=== PATIENT | female | born 1940 | race Caucasian/White ===

== ENCOUNTER → 2017-08-26 | Outpatient (CLI) | payer MEDICARE, OTHER ==
[~2017-08-26] MED LIST: ATOR10 PO; Bactrim Ds Tab1 EACH PO; CALC1.25T; CALCAVITDA PO; ENOX30I SC; ESOM20 PO; GINKGO BILOBA30 MG; GLUCOSAMINE-CH900 MG PO; HYDACE5 PO; LISI20 PO; MELO7.5 PO; Mobic15 MG PO; OSTEO BI-FLEX1 EAC2 PO; OSTEO-PORETICA1 EACH PO; SULTRIDS PO; VICODIN HP 10-1 EACH PO
== END | disposition home or self-care (01) ==
LOC: LAB EV 12:33 → LAB SHORT 12:33
DX: N39.0 Urinary tract infection, site not specified (principal)
CPT/HCPCS: 87077; 87086; 87186

== ENCOUNTER → 2017-09-14 | Outpatient (CLI) | payer MEDICARE, OTHER | END | disposition home or self-care (01) | LOC: LAB EV 15:14 → LAB SHORT 15:14 | DX: R35.0 Frequency of micturition (principal) | CPT/HCPCS: 87077; 87086; 87186 ==

== ENCOUNTER → 2017-12-09 | Outpatient (CLI) | payer MEDICARE, OTHER | LOC: LAB 16:20 → LAB SHORT 16:20 | DX: N39.0 Urinary tract infection, site not specified (principal) | CPT/HCPCS: 87086 ==

== ENCOUNTER 2018-07-05 13:45 | Inpatient (IN) | payer MEDICARE, OTHER ==
[~2018-07-05] VITALS: Ht 167.6 cm; Wt 77.6 kg
[~2018-07-05 13:45] MED LIST changes: +ASPI81CH PO; -CALC1.25T; +CHOL10002 PO; +CYCL10 PO; +GABA100 PO; +Oyster Shell Calcium PO
[2018-07-06] MEDS ORDERED: Norco 7.5-3251 EACH PO (06:42)
--- NOTE | 2018-07-06 06:46 | NUR ---
PTADMITTED TO [facility]. AGREES WITH PLANNED SURGERY. LUNG SOUNDS CLEAR.
--- NOTE | 2018-07-06 06:55 | NUR ---
SHAILAN SWAB TO BILATERAL NARES
--- NOTE | 2018-07-06 07:17 | NUR ---
UP TO BATHROOM, VOIDED.
--- NOTE | 2018-07-06 07:18 | NUR ---
DR. LOO INFORMED THAT WE NEED A RECTAL SWAB TO CLEAR PT HX OF ESBL. ORDER GIVEN TO OBTAIN RECTAL SWAB.
--- NOTE | 2018-07-06 16:29 | NUR ---
DISCUSSED WITH ORTHO COORDINATOR, SPECIMEN COLLECTED EARLIER IN DAYSURGERY BY Luana BOND.
--- NOTE | 2018-07-06 17:47 | NUR ---
SHIFT SUMMARY PT EATING AND DRINKING WELL. PT VOIDING. PASSING GAS. WALKING WITH ASSIST IN HALLWAY. REPORTS PAIN MUCH BETTER, DENIES AT THIS TIME. HEMOVAC IN PLACE. PT USING CALL LIGHT APPR. PT BEEN UP IN CHAIR FOR SOME TIME.
[2018-07-07 04:36] LABS: BASOPHILS ABSOLUTE AUTO 0.01 K/mm3 (0.00-0.23); BASOPHILS PERCENT AUTO 0 % (0-2); EOSINOPHILS PERCENT AUTO 0 % (0-6); Hemoglobin 9.3 g/dL (11.5-16.0); IMMATURE GRAN ABSOLUTE AUTO 0.04 K/mm3 (0.00-0.10); IMMATURE GRAN PERCENT AUTO 0 % (0-1); LYMPHOCYTES PERCENT AUTO 10 % (21-46); MONOCYTES ABSOLUTE AUTO 0.82 K/mm3 (0.16-1.47); MONOCYTES PERCENT AUTO 9 % (4-13); Mean Corpuscular HGB 31.7 pg (26.0-34.0); Mean Corpuscular HGB Conc 33.2 g/dL (31.5-36.5); Mean Corpuscular Volume 96 fL (80-100); Mean Platelet Volume 9.4 fL (9.1-12.4); NEUTROPHILS ABSOLUTE AUTO 7.64 K/mm3 (1.96-9.15); NEUTROPHILS PERCENT AUTO 81 % (41-73); Platelet Count 231 K/mm3 (150-400); RDW Coefficient Variation 13.3 % (11.7-14.2); RDW Standard Deviation 46.8 fL (35.1-46.3); Red Blood Cell Count 2.93 M/mm3 (3.80-5.20); White Blood Cell Count 9.41 K/mm3 (4.00-11.30)
[2018-07-07 05:01] LABS: Calcium, Blood 8.3 mg/dL (8.5-10.1); Potassium, Blood 4.4 mmol/L (3.5-5.5)
--- NOTE | 2018-07-07 06:19 | NUR ---
SHIFT SUMMARY PT A&O X4 T/O SHIFT. POD#1 L KESHA; DRESSING CDI T/O SHIFT. HEMOVAC COMPRESSED; 75 ML DARK SS DRAINAGE OVER SHIFT. PAIN MANGED PER EMAR. CRYOTHERAPY TO L HIP T/O SHIFT. PPPX4. PT STS N/T AT BASELINE. PT UP TO TOILET AND AMBULATED IN [place] WITH FWW, GP AND SBA; TOLERATED WELL. DAVID'S AND SCD'S TO BLE'S. PT DENIES SOB, DIZZINESS, CP AND NAUSEA T/O SHIFT. SIDE RAILS X3 FOR SAFETY. PT DEMONSTRATES I/S USE WHILE AWAKE. CALL LIGHT IN REACH; PT DEMONSTRATES USE. WCTM UNTIL REPORT TO DAY SHIFT RN.
[2018-07-07] MEDS ORDERED: LO-DOSE ASPIRIN81 MG PO (09:50)
[2018-07-07] MEDS ORDERED: Percocet 5-3251 EACH PO (09:53)
--- NOTE | 2018-07-07 11:57 | NUR ---
DISCHARGE: PT EATING AND DRINKING. PT VOIDING, PASSING GAS. PAIN TOLERABLE ON PO PAIN MEDICATON. BEEN CLEARED BY THERAPY TO GO HOME. REPORTS HAVING APPR EQUIP AT HOME. SENT WITH BELONGINGS INCLUDING DRESSINGS AND POLAR PAC. PT/FAMILY REPORTS UNDERSTANDING OF DISCHARGE INSTRUCTIONS.
== END 2018-07-07 11:57 | disposition home or self-care (01) | DRG 470 ==
LOC: SURS 07-06 05:43 → PRE IP 07-06 07:30 → SURS 07-06 11:10
PROVIDERS: ADMIT Orthopaedic Surgery
PROC: 0SRB0JA Replacement of Left Hip Joint with Synthetic Substitute, Uncemented, Open Approach (ICD-10-PCS; principal; 2018-07-06 07:30)
DX: M16.12 Unilateral primary osteoarthritis, left hip (principal); M87.052 Idiopathic aseptic necrosis of left femur; E78.5 Hyperlipidemia, unspecified; K21.9 Gastro-esophageal reflux disease without esophagitis; Z79.82 Long term (current) use of aspirin; Z79.899 Other long term (current) drug therapy
CPT/HCPCS: 36415; 72170; 80048; 85025; 86850; 86900; 86901; 87081; 88300; 97110; 97116; 97162; 97530; J0171; J0690; J0735; J1100; J1885; J2370; J2405; J2795; J3010; J7120

== ENCOUNTER 2019-02-20 15:16 | Observation (INO) | payer MEDICARE, OTHER ==
[~2019-02-20] VITALS: Ht 165.1 cm; Wt 83.3 kg
[~2019-02-20 15:16] MED LIST changes: +CALCIUM PO; +DICLOFENAC SOD100 G1 TOP; +DIPHENHYDRAMINE PO; +IBUPROFEN PO; +LO-DOSE ASPIRIN81 MG PO; +Norco 7.5-3251 EACH PO; +Percocet 5-3251 EACH PO
--- NOTE | 2019-02-21 06:47 | NUR ---
INTO [facility] ADMISSION STARTED/ Ambulatory in Day Surgery History, Chart, Medications and Allergies reviewed before start of procedure.Lungs clear T/O to Auscultation. Patient confirms NPO status and agrees with scheduled surgery.
--- NOTE | 2019-02-21 10:17 | NUR ---
02/21/19 1017 Dimitris Vogel ITEM USED: 4MM PEG DRILL P/U [id number] NOT UNDER [facility] ITEMS LIST
--- NOTE | 2019-02-21 11:42 | NUR ---
PT ARRIVED TO THE UNIT AT APPROXIMATELY 1115. PT ALERT AND ORIENTED. SHE RATES HER PAIN AT 3/10 AND REPORTS HER PAIN IS TOLERABLE BUT IT IS INCREASING. PT MEDICATED WITH PO PAIN MEDICATION. PT EDUCATED TO USE THE CALL LIGHT AND ABOUT NURSE ROUNDING. WILL CONTINUE TO MONITOR.
--- NOTE | 2019-02-21 18:31 | NUR ---
SHIFT SUMMARY PAIN HAS BEEN MANAGED WITH PO PAIN MEDICATION THIS SHIFT. PT HAS BEEN A 1 ASSIST WHEN OOB AND HAS WORKED WITH THERAPY. PT TOLERATING PO WELL. VSS. WILL MONITOR UNTIL REPORT TO ONCOMING RN.
[2019-02-22 04:54] LABS: BASOPHILS ABSOLUTE AUTO 0.01 K/mm3 (0.00-0.23); BASOPHILS PERCENT AUTO 0 % (0-2); EOSINOPHILS ABSOLUTE AUTO 0.03 K/mm3 (0.00-0.68); EOSINOPHILS PERCENT AUTO 0 % (0-6); Hematocrit 32.7 % (33.0-51.0); Hemoglobin 10.9 g/dL (11.5-16.0); IMMATURE GRAN ABSOLUTE AUTO 0.05 K/mm3 (0.00-0.10); IMMATURE GRAN PERCENT AUTO 1 % (0-1); LYMPHOCYTES ABSOLUTE AUTO 1.32 K/mm3 (0.84-5.20); LYMPHOCYTES PERCENT AUTO 14 % (21-46); MONOCYTES ABSOLUTE AUTO 0.97 K/mm3 (0.16-1.47); MONOCYTES PERCENT AUTO 11 % (4-13); Mean Corpuscular HGB 33.9 pg (26.0-34.0); Mean Corpuscular HGB Conc 33.3 g/dL (31.5-36.5); Mean Corpuscular Volume 102 fL (80-100); Mean Platelet Volume 9.1 fL (9.1-12.4); NEUTROPHILS ABSOLUTE AUTO 6.83 K/mm3 (1.96-9.15); NEUTROPHILS PERCENT AUTO 74 % (41-73); Platelet Count 203 K/mm3 (150-400); RDW Coefficient Variation 12.7 % (11.7-14.2); RDW Standard Deviation 47.4 fL (35.1-46.3); Red Blood Cell Count 3.22 M/mm3 (3.80-5.20); White Blood Cell Count 9.21 K/mm3 (4.00-11.30)
[2019-02-22 05:07] LABS: Calcium, Blood 8.4 mg/dL (8.5-10.1); Creatinine, Blood 1.19 mg/dL (0.40-1.00); Potassium, Blood 4.2 mmol/L (3.5-5.5)
--- NOTE | 2019-02-22 05:15 | NUR ---
Patient A/Ox4. VSS. Ambulating to bathroom with SBA and FWW. Non weightbearing to RLE. Dressing DCI. Complaints of moderate pain to right ankle; medicated per orders. Saline locked. Voiding freely.
[2019-02-22] MEDS ORDERED: Percocet 5-3251 EACH PO (11:22)
--- NOTE | 2019-02-22 13:14 | NUR ---
DISCHARGE PT PROVIDED WITH WRITTEN AND VERBAL DISCHARGE INSTRUCTIONS. SHE REPORTED UNDERSTANDING. PT PROVIDED WITH PRESCRIPTION FOR PAIN MEDICATION. VSS. WILL MONITOR UNTIL REPORT TO ONCOMING RN.
== END 2019-02-22 12:00 | disposition home or self-care (01) ==
LOC: PRE IP 02-21 06:20 → SURS 02-21 06:20 → PRE IP 02-21 07:30 → SURS 02-21 11:04
PROVIDERS: Family Medicine; ADMIT Podiatrist Foot & Ankle Surgery
DX: M19.071 Primary osteoarthritis, right ankle and foot (principal); M21.6X1 Other acquired deformities of right foot; M51.36 Other intervertebral disc degeneration, lumbar region; M19.90 Unspecified osteoarthritis, unspecified site; K21.9 Gastro-esophageal reflux disease without esophagitis; E78.5 Hyperlipidemia, unspecified; I10 Essential (primary) hypertension; Z86.73 Personal history of transient ischemic attack (TIA), and cerebral infarction without residual deficits; Z98.1 Arthrodesis status; Z79.82 Long term (current) use of aspirin; Z79.899 Other long term (current) drug therapy; Z90.710 Acquired absence of both cervix and uterus; Z96.652 Presence of left artificial knee joint
CPT/HCPCS: 36415; 73610; 80048; 85025; 86850; 86900; 86901; 88300; 97116; 97162; 97165; 97530; 97535; C1713; C1776; J0171; J0690; J0735; J1100; J1650; J1885; J2250; J2405; J2704; J2795; J3010; J7120

== ENCOUNTER → 2019-09-11 | Outpatient (CLI) | payer MEDICARE, OTHER | END | disposition home or self-care (01) | LOC: LAB 15:19 → LAB SHORT 15:19 → LAB FUT 09-10 09:30 | DX: N39.0 Urinary tract infection, site not specified (principal) | CPT/HCPCS: 87086 ==

== ENCOUNTER 2024-02-08 08:35 | Day surgery (SDC) | payer MEDICARE, OTHER ==
[~2024-02-08] VITALS: Ht 160 cm; Wt 82.9 kg
[2024-02-08] VITALS (14 sets, daily range): BP systolic 127–161; BP diastolic 64–89
[~2024-02-08 08:35] MED LIST changes: +VITAMIN D PO
[2024-02-08] MEDS ORDERED: Tranexamic Acid 100 ML IV SCH (08:54)
[2024-02-08] MEDS ORDERED: Chlorhexidine Mouth Care 15 ML UDC MT SCH (08:55)
[2024-02-08] MEDS ORDERED: Acetaminophen 500 MG Tab PO SCH ×2 (08:55→16:00)
[2024-02-08] MEDS ORDERED: CeFAZolin Sodium 2,000 MG in NS 100 ML IV SCH ×2 (08:55→21:15)
[2024-02-08] MEDS ORDERED: Lactated Ringer's 1,000 ML IV SCH ×2 (08:55→10:35)
[2024-02-08] MEDS ORDERED: OxyCODONE HCL 10 MG TABCR PO SCH (08:55)
[2024-02-08] MEDS ORDERED: Vancomycin HCL 1,000 MG in NS 250 ML IV SCH ×2 (08:55→21:45)
[2024-02-08] MEDS ORDERED: Ropivacaine 0.5% HCl/Pf 123.125 MG,EPINEPHrine HCL 0.25 MG,Ketorolac Tromethamine 15 MG... INFIL SCH (08:55)
--- NOTE | 2024-02-08 09:50 | NUR ---
History, Chart, Medications and Allergies reviewed before start of procedure. Pre-Op teaching done. Pt verbalizes understanding. Lungs clear T/O to Auscultation. Patient reports completing Chlorhexadine shower X2 prior to admission to hospital. Patient confirms NPO status and agrees with scheduled surgery.
[2024-02-08] MEDS ORDERED: Bisacodyl 10 MG Supp PR PRN (10:25)
[2024-02-08] MEDS ORDERED: Promethazine HCl 25 MG Tab PO PRN (10:30)
[2024-02-08] MEDS ORDERED: Magnesium Hydroxide Conc 10 ML UDC PO PRN (10:30)
[2024-02-08] MEDS ORDERED: OxyCODONE HCL 5 MG TAB PO PRN ×2 (10:30)
[2024-02-08] MEDS ORDERED: Ondansetron HCl 2 MG / ML 2ML Vial IV PRN ×2 (10:30→12:50)
[2024-02-08] MEDS ORDERED: DiphenhydrAMINE HCL 25 MG Cap PO PRN (10:35)
[2024-02-08] MEDS ORDERED: FLU VACC TS2024-25(6MOS UP)/PF 45 MCG/0.5 ML SYRINGE IM SCH (10:35)
[2024-02-08] MEDS ORDERED: Metoclopramide HCl 5MG / ML 2ML Vial IV PRN (10:35)
[2024-02-08] MEDS ORDERED: HYDROmorphone HCl/Pf 1MG SYR IV PRN ×2 (10:35→12:50)
[2024-02-08] MEDS ORDERED: Midazolam HCl 1MG / ML 2ML Vial ONE ×2 (10:45→12:30)
[2024-02-08] MEDS ORDERED: FentaNYL Citrate 50 MCG/ML 2 ML Injection ONE (10:45)
[2024-02-08] MEDS ORDERED: propofoL 40 ML IV ONE (10:50)
[2024-02-08] MEDS ORDERED: Vancomycin HCl 1000 MG ADDvantage ONE (10:52)
[2024-02-08] MEDS ORDERED: Bupivacaine 0.5% HCl 5 MG/ML 30MLVIAL ONE (10:57)
[2024-02-08] MEDS ORDERED: Lidocaine HCl 2% 20 ML MDV ONE (11:15)
--- NOTE | 2024-02-08 12:02 | NUR ---
02/08/24 1202 Amie Magaña INITIAL SPINAL BLOCK ATTEMPTED BY DR. FANG, NOT SUCCESSFUL. SPINAL BLOCK SUCESSFULLY COMPLETED BY . VANCO 1GM IV WAS STARTED IN PREOP.
[2024-02-08] MEDS ORDERED: propofoL 20 ML IV ONE ×2 (12:25→12:53)
[2024-02-08] MEDS ORDERED: Dexamethasone Sod Phos 10 MG/ML 1ML VIAL ONE (12:28)
[2024-02-08] MEDS ORDERED: Ketorolac Tromethamine 30mg Vial ONE (12:28)
[2024-02-08] MEDS ORDERED: FentaNYL Citrate 50 MCG/ML 2 ML Injection IV PRN (12:50)
[2024-02-08] MEDS ORDERED: Albuterol 2.5 MG/3 ML VIAL INH PRN (12:50)
--- NOTE | 2024-02-08 14:21 | NUR ---
PT ARRIVES FROM PACU ALERT POST OP R TKA. PT HAD SPINAL DONE AND HAS NO SENSATION OR MOVEMENT IN LOWER EXTREMITIES. PT GIVEN WATER, JELLO, AND CRACKERS AND ENCOURAGED TO EAT/DRINK TOLERATED. PT HAS GAUZE OVER JEANETTE WITH AMADEO WRAP AND POLAR PACK IN PLACE. CALL LIGHT IN REACH AND SIDE RAILS UP.
[2024-02-08] MEDS ORDERED: OXYC5 PO (15:03)
[2024-02-08] MEDS ORDERED: SULTRIDS PO (15:05)
[2024-02-08] MEDS ORDERED: XARELTO20 MG PO (15:05)
--- NOTE | 2024-02-08 17:58 | NUR ---
PT HAS TOLERATED PO INTAKE WELL. HAS NOT VOIDED YET. PT ABLE TO MOVE LOWER EXTREMITIES AND SENSATION HAS MOSTLY RETURNED. PT WILL SEE PHYSICAL THERAPY TOMORROW. PT HAS NOT HAD ANY COMPLAINTS OF PAIN THUS FAR. DRESSING ON R KNEE IS C/D/I.
[2024-02-08] MEDS ORDERED: Ketorolac Tromethamine 15mg Vial IV SCH (18:00)
[2024-02-08] MEDS ORDERED: Docusate Sodium 100 MG Cap PO SCH (21:00)
[2024-02-09 03:56] VITALS: BP 149/77
[2024-02-09 05:05] LABS: BASOPHILS PERCENT AUTO 0 % (0-2); EOSINOPHILS PERCENT AUTO 0 % (0-6); Hematocrit 28.9 % (33.0-51.0); IMMATURE GRAN ABSOLUTE AUTO 0.04 K/mm3 (0.00-0.10); IMMATURE GRAN PERCENT AUTO 0 % (0-1); LYMPHOCYTES ABSOLUTE AUTO 0.67 K/mm3 (0.84-5.20); LYMPHOCYTES PERCENT AUTO 7 % (21-46); MONOCYTES ABSOLUTE AUTO 0.64 K/mm3 (0.16-1.47); MONOCYTES PERCENT AUTO 7 % (4-13); Mean Corpuscular HGB 32.5 pg (26.0-34.0); Mean Corpuscular HGB Conc 34.6 g/dL (31.5-36.5); Mean Corpuscular Volume 94 fL (80-100); Mean Platelet Volume 9.6 fL (9.1-12.4); NEUTROPHILS ABSOLUTE AUTO 8.32 K/mm3 (1.96-9.15); NEUTROPHILS PERCENT AUTO 86 % (41-73); Platelet Count 209 K/mm3 (150-400); RDW Coefficient Variation 13.8 % (11.7-14.2); RDW Standard Deviation 47.2 fL (35.1-46.3); Red Blood Cell Count 3.08 M/mm3 (3.80-5.20); White Blood Cell Count 9.67 K/mm3 (4.00-11.30)
--- NOTE | 2024-02-09 05:23 | NUR ---
SHIFT SUMMARY NOC. PT POD 1 FOR R TOTAL KNEE. PT MEDICATED FOR PAIN WITH ORAL OXY WITH REPORTED RELIEF. PT AMADEO WRAP AND GAUZE DRESSING C/D/I. PT VOIDING URINE AND TOLERATING PO INTAKE. POLAR PACK IN PLACE. PT AMBULATES WELL TO BR WITH FWW, GAIT BELT AND SBA. BED IN LOWEST POSITION, CALL LIGHT IN REACH.
[2024-02-09 05:43] LABS: Calcium, Blood 8.6 mg/dL (8.5-10.1); Creatinine, Blood 0.86 mg/dL (0.40-1.00); Magnesium, Blood 1.5 mg/dL (1.6-2.4); Potassium, Blood 3.8 mmol/L (3.5-5.5)
[2024-02-09] MEDS ORDERED: Omeprazole 20 MG CapCR PO SCH (06:00)
[2024-02-09] MEDS ORDERED: Magnesium Sulf 2 GM/Water 50ML 50 ML IV ONE (06:50)
[2024-02-09 07:22] VITALS: BP 122/68
[2024-02-09] MEDS ORDERED: Trimethoprim/Sulfamethoxazole DS Tab PO SCH (09:00)
[2024-02-09] MEDS ORDERED: Atorvastatin 10 MG Tab PO SCH (09:00)
[2024-02-09] MEDS ORDERED: Rivaroxaban 10 MG Tab PO SCH (09:00)
[2024-02-09] MEDS ORDERED: Aspirin 81 MG Chew PO SCH (09:00)
--- NOTE | 2024-02-09 12:25 | NUR ---
PT D/C HOME WITH RIDE FROM DAUGHTER. PT A/OX4, JOSE ALEJANDRO PO INTAKE WELL, ADEQUATE PAIN CONTROL WITH PO MEDS. PT VERBALIZES D/C INSTR. F/U SCHEDULED WITH ORTHO AND CALL FOR ANY CONCERNS. DRSG ON R KNEE C/D/I. PT SENT HOME WITH EXTRA AQUACEL DRESSINGS. PT ESCORTED TO LOBBY VIA WC.
== END 2024-02-09 12:35 | disposition home or self-care (01) ==
LOC: ORSCMMR 08:35 → ORD 10:45 → ORSCMMR 11:00 → SURS 14:09 → ORSCMMR 02-09 12:35
PROVIDERS: Orthopaedic Surgery
PROC: 0SRC0J9 Replacement of Right Knee Joint with Synthetic Substitute, Cemented, Open Approach (ICD-10-PCS; principal; 2024-02-08 10:45)
DX: M17.11 Unilateral primary osteoarthritis, right knee (principal); K21.9 Gastro-esophageal reflux disease without esophagitis; E66.9 Obesity, unspecified; Z68.32 Body mass index [BMI] 32.0-32.9, adult; Z79.899 Other long term (current) drug therapy; Z79.82 Long term (current) use of aspirin; Z96.652 Presence of left artificial knee joint; Z96.649 Presence of unspecified artificial hip joint
CPT/HCPCS: 36415; 73560-RT; 80048; 83735; 85025; 94760; 97110; 97116; 97162; A9270; C1713; C1776; J0171; J0690; J0735; J1100; J1885; J2250; J2704; J2795; J3010; J3370; J3475; J7050; J7120